=== PATIENT | male | born 1985 | race African-American/Black ===

== ENCOUNTER 2017-07-06 02:16 | Emergency (ER) | payer OTHER ==
[~2017-07-06] VITALS: Ht 180.3 cm; Wt 71.0 kg
[2017-07-06 02:30] VITALS: BP 129/74; PULSE 90; RESP 16; TEMP 98.3; O2SAT 98
[2017-07-06 05:48] VITALS: BP 148/78; PULSE 92; RESP 18; TEMP 99.2; O2SAT 100
--- NOTE | 2017-07-06 08:21 | PD ---
HPI Chief Complaint: Cold / Flu Symptoms Time Seen by Provider: 07:26 Travel History International Travel<30 days: No Contact w/Intl Traveler<30days: No Traveled to known affect area: No History of Present Illness HPI 32-year-old male presents to the emergency room for evaluation of cold and flu symptoms that started 2-3 days ago. Symptoms include low-grade fevers, chills, sore throat, cough, and congestion. Sore throat is mild. He has been taking [id number] medications that only helped for a short period of time. He denies any other chronic medical conditions or daily medications. FORMERLY [facility] Past Medical History Medical History: Denies Significant Hx Autoimmune Disease: No Blood Disorders: No Anxiety: No Depression: No Cardiovascular Problems: No Gastrointestinal Disorders: No Genitourinary: No Musculoskeletal: No Neurologic: No Psychiatric: No Reproductive: No Respiratory: No Sickle Cell Disease: No Tetanus Vaccination: < 5 Years Influenza Vaccination: No Past Surgical History Surgical History: No Previous Surgery Other Surgery: No Social History Alcohol Use: No Tobacco Use: Yes (5 cig daily) Substance Use: No Allergies-Medications (Allergen,Severity, Reaction): Coded Allergies: No Known Allergies (Verified Allergy, Severe, 07/06/17) Reported Meds & Prescriptions Reported Meds & Active Scripts Active No Active Prescriptions or Reported Medications Review of Systems Except as stated in HPI: all other systems reviewed are Neg Physical Exam Narrative GENERAL: Well-nourished, well-developed male in no acute distress. Afebrile. Ambulatory. SKIN: Focused skin assessment warm/dry. HEAD: Normocephalic. EYES: No scleral icterus. No injection or drainage. ENT: Mucosa pink and moist. Moderate erythema with scant exudates. No uvular edema. No uvular, palatal, or tonsillar deviation. Airway patent. Nasal turbinates appear normal without nasal blood, purulent drainage or septal hematoma. EARS: Bilateral pinnae and external canals appear within normal limits. Bilateral tympanic membranes without erythema, dullness or perforation. NECK: Supple, trachea midline. No JVD or lymphadenopathy. CARDIOVASCULAR: Regular rate and rhythm without murmurs, gallops, or rubs. RESPIRATORY: Breath sounds equal bilaterally. No accessory muscle use. No crackles, rales, wheezes, or rhonchi. Data Data Last Documented VS Vital Signs Date Time Temp Pulse Resp B/P (MAP) Pulse Ox O2 Delivery O2 Flow Rate FiO2 07/06/17 05:48 99.2 92 18 148/78 (101) 100 Room Air Orders Orders Group A Rapid Strep Screen (07/06/17 07:26) Influenzae A/B Antigen (07/06/17 07:26) Strep Culture (Group A) (07/06/17 07:30) MDM Medical Decision Making Medical Screen Exam Complete: Yes Emergency Medical Condition: Yes Medical Record Reviewed: Yes Differential Diagnosis URI, pneumonia, bronchitis, strep, flu Narrative Course 32-year-old male presents to the emergency room with 2 day history of cough and cold symptoms. Physical exam is reassuring. Vital signs stable. No evidence of bacterial infection. Rapid flu and influenza are negative. Patient discharged with Tessalon Perles and Magic mouthwash. Told to follow-up with a primary care physician or return for worsening symptoms. He understands and agrees to plan. Diagnosis Primary Impression: Upper respiratory infection Qualified Codes: J00 - Acute nasopharyngitis [common cold] Referrals: Primary Care Physician Additional Instructions: Rest and drink plenty of fluids. Use Tessalon Perles and Magic mouthwash as directed, as needed for cough and sore throat. Take ibuprofen with food as directed, as needed for pain. Follow-up with a primary care physician. Return to the emergency room for worsening symptoms. Scripts No Active Prescriptions or Reported Meds Disposition: 01 DISCHARGE HOME Condition: Stable Irais Mitchell Jul 06, 2017 08:21
[2017-07-06] MEDS ORDERED: MAGICPED SWISH-SWAL (08:22)
[2017-07-06] MEDS ORDERED: BENZ100 PO (08:22)
== END 2017-07-06 09:07 | disposition home or self-care (01) ==
LOC: NEPD 02:16
DX: J00 Acute nasopharyngitis [common cold] (principal); F17.210 Nicotine dependence, cigarettes, uncomplicated
CPT/HCPCS: 87081; 87804; 87880; 99283